=== PATIENT | female | born 1970 | race Caucasian/White ===

== ENCOUNTER 2016-10-13 10:36 | Emergency (ER) | payer OTHER ==
[~2016-10-13] VITALS: Ht 162.6 cm; Wt 78.0 kg
[2016-10-13 10:41] VITALS: Ht 162.6 cm; Wt 78.0 kg
[2016-10-13] MEDS ORDERED: morphine 4 MG/ML VIAL IV STA ×2 (11:04→15:32)
[2016-10-13] MEDS ORDERED: ONDANSETRON 4 MG INJ IV STA ×2 (11:04→15:32)
[2016-10-13] MEDS ORDERED: SOD CHLORIDE 0.9% 1,000 ML IV STA (11:04)
[2016-10-13 11:42] LABS: ADD SCAN DIFF NO
[2016-10-13 11:46] LABS: BASOPHILS % 0.3 % (0.0-2.0); EOSINOPHILS # 0.1 10^3/ul (0.0-0.5); EOSINOPHILS % 0.7 % (0.0-7.0); HEMATOCRIT 50.9 % (37.0-47.0); HEMOGLOBIN 16.6 g/dl (12.0-16.0); LYMPHOCYTES # 1.3 10^3/ul (0.8-2.9); LYMPHOCYTES % 17.4 % (15.0-51.0); MEAN CORPUSCULAR HEMOGLOBIN 28.9 pg (29.0-33.0); MEAN CORPUSCULAR HGB CONC 32.6 g/dl (32.0-37.0); MEAN CORPUSCULAR VOLUME 88.5 fl (82.0-101.0); MEAN PLATELET VOLUME 10.1 fl (7.4-10.4); MONOCYTE # 0.7 10^3/ul (0.3-0.9); MONOCYTES % 9.3 % (0.0-11.0); NEUTROPHIL # 5.2 10^3/ul (1.6-7.5); NEUTROPHILS % 71.9 % (39.0-77.0); PLATELET COUNT 338 10^3/UL (140-415); RED BLOOD COUNT 5.75 10^6/ul (4.20-5.40); RED CELL DISTRIBUTION WIDTH 13.2 % (11.5-14.5); WHITE BLOOD COUNT 7.3 10^3/ul (4.8-10.8)
--- NOTE | 2016-10-13 12:04 | RADRPT ---
PROCEDURE: Right upper quadrant abdominal ultrasound. CLINICAL INDICATION: Abdominal pain TECHNIQUE: Ramos scale and color doppler ultrasound images of the right upper quadrant. COMPARISON: None FINDINGS: Pancreas: Visualized portions appear of normal echogenicity, no focal lesions. Liver: Morphology: Normal in size and contour. Echogenicity: Normal. Focal lesions: None. Main portal vein: Patent with hepatopetal flow. Biliary System: Normal appearing gallbladder wall. No gallstones seen. No intrahepatic biliary dilatation. Common bile duct measures 4.7 mm in maximal dimension. Kidneys: Right 10.3 cm in length. Right renal cortical thickness is preserved. Normal echogenicity. No hydronephrosis. No renal calculi. No focal lesions. No free fluid identified. IMPRESSION: Normal gallbladder without gallstones. Normal examination. RPTAT: AADD .Gigi Bah MD, MD Date Time Electronically viewed and signed by .Gigi Bah MD, on 10/13/2016 12:04 .B/
[2016-10-13 12:09] LABS: ALBUMIN 5.1 g/dl (3.3-4.9); ALBUMIN/GLOBULIN RATIO 1.59; BILIRUBIN,INDIRECT 0.3 mg/dl (0-1.1); BILIRUBIN,TOTAL 0.3 mg/dl (0.2-1.3); CALCIUM 10.2 mg/dl (8.4-10.2); CREATININE 0.7 mg/dl (0.44-1.00); TOTAL PROTEIN 8.3 g/dl (6.1-8.1)
--- NOTE | 2016-10-13 12:16 | ERD ---
ER Documentation Chief Complaint Date/Time DATE: 10/13/16 TIME: 12:16 Chief Complaint ap with nausea and diarrhea HPI This is a 46-year-old female with history of gastritis presenting to the emergency department complaining of severe constant periumbilical abdominal pain and epigastric abdominal pain for the past day. Patient states that she is nauseous and had a few episodes of nonbloody diarrhea yesterday. Patient denies any vomiting, fevers. She states the pain has worsened after she ate a meal. She denies any dysuria. Patient states she has had the epigastric pain on and off for past year ROS All systems reviewed and are negative except as per history of present illness. Medications Home Meds Active Scripts Hydrocodone/Acetaminophen ([place] 5-325 Tablet) 1 Each Tablet, 1 EACH PO Q6, #20 TAB Prov:GODWIN BEASLEY PA-C 10/13/16 Trimethobenzamide Hcl* (Tigan*) 300 Mg Capsule, 300 MG PO TID Y for NAUSEA, #10 CAP Prov:GODWIN BEASLEY PA-C 10/13/16 Omeprazole* (Omeprazole*) 20 Mg Capsule.dr, 20 MG PO DAILY, #20 Prov:GODWIN BEASLEY PA-C 10/13/16 PMhx/Soc Medical and Surgical Hx: pt denies Medical Hx, pt denies Surgical Hx Hx Alcohol Use: No Hx Substance Use: No Hx Tobacco Use: No Smoking Status: Never smoker Physical Exam Vitals Vital Signs Date Time Temp Pulse Resp B/P Pulse Ox O2 Delivery O2 Flow Rate FiO2 10/13/16 10:41 98.1 77 18 110/59 99 Physical Exam GENERAL: well-developed/well-nourished, in no apparent distress, non-toxic appearing HENT: NC/AT, moist mucous membranes EYES: Conjunctiva normal NECK: Supple, no lymphadenopathy PULM: CTA bilaterally, no rales, rhonchi, or wheezing heard CV: Normal S1S2, RRR, good capillary refill GI: Soft, non-distended, tender to palpation epigastric and periumbilical region Normal bowel sounds, no masses or organomegaly felt on exam No gross peritonitis, no bruits Negative Rovsing, negative Earl, negative McBurney's point, Negative CVAT BACK: No masses EXT: No clubbing, cyanosis, or edema NEURO: Alert and Orientated SKIN: Intact, normal turgor PSYCH: Normal mood and mentation Result Diagram: 10/13/16 1120 10/13/16 1120 Results 24 hrs Laboratory Tests Test 10/13/16 11:20 10/13/16 14:10 White Blood Count 7.310^3/ul Red Blood Count 5.7510^6/ul Hemoglobin 16.6g/dl Hematocrit 50.9% Mean Corpuscular Volume 88.5fl Mean Corpuscular Hemoglobin 28.9pg Mean Corpuscular Hemoglobin Concent 32.6g/dl Red Cell Distribution Width 13.2% Platelet Count 79892^3/UL Mean Platelet Volume 10.1fl Neutrophils % 71.9% Lymphocytes % 17.4% Monocytes % 9.3% Eosinophils % 0.7% Basophils % 0.3% Nucleated Red Blood Cells % 0.0/100WBC Neutrophils # 5.210^3/ul Lymphocytes # 1.310^3/ul Monocytes # 0.710^3/ul Eosinophils # 0.110^3/ul Basophils # 0.010^3/ul Nucleated Red Blood Cells # 0.010^3/ul Sodium Level 142mmol/L Potassium Level 5.0mmol/L Chloride Level 107mmol/L Carbon Dioxide Level 26mmol/L Anion Gap 14 Blood Urea Nitrogen 8mg/dl Creatinine 0.70mg/dl Glucose Level 92mg/dl Calcium Level 10.2mg/dl Total Bilirubin 0.3mg/dl Direct Bilirubin 0.00mg/dl Indirect Bilirubin 0.3mg/dl Aspartate Amino Transf (AST/SGOT) 44IU/L Alanine Aminotransferase (ALT/SGPT) 52IU/L Alkaline Phosphatase 58IU/L Total Protein 8.3g/dl Albumin 5.1g/dl Globulin 3.20g/dl Albumin/Globulin Ratio 1.59 Lipase 116U/L Urine Color YELLOW Urine Clarity CLEAR Urine pH 5.5 Urine Specific [place] >=1.030 Urine Ketones NEGATIVE Urine Nitrite NEGATIVE Urine Bilirubin NEGATIVE Urine Urobilinogen 0.2 E.U./dL Urine Leukocyte Esterase NEGATIVE Urine Microscopic RBC 0-2/HPF Urine Microscopic WBC 0-2/HPF Urine Epithelial Cells FEW Urine Bacteria MODERATE Urine Hemoglobin 1+ Urine Glucose NEGATIVE% Urine Total Protein NEGATIVE Current Medications Medications (Trade) Dose Ordered Sig/Hang Route PRN Reason Start Time Stop Time Status Last Admin Dose Admin Sodium Chloride (NS) 1,000 ml @ 1,000 mls/hr Q1H STAT IV 10/13/16 11:04 10/13/16 12:04 DC 10/13/16 11:18 Morphine Sulfate (morphine) 4 mg ONCE STAT IV 10/13/16 11:04 10/13/16 11:06 DC 10/13/16 11:17 Ondansetron HCl (Zofran Inj) 4 mg ONCE STAT IV 10/13/16 11:04 10/13/16 11:06 DC 10/13/16 11:17 Morphine Sulfate (morphine) 4 mg ONCE STAT IV 10/13/16 15:32 10/13/16 15:33 DC 10/13/16 15:46 Ondansetron HCl (Zofran Inj) 4 mg ONCE STAT IV 10/13/16 15:32 10/13/16 15:33 DC 10/13/16 15:46 Miscellaneous Medication (Gi Cocktail (2)) 40 ml ONCE STAT PO 10/13/16 15:34 10/13/16 15:35 DC 10/13/16 15:46 Procedures/MDM This is a 46-year-old female presenting to the emergency department with a complaint of periumbilical abdominal pain, epigastric pain, nausea, and diarrhea since yesterday. Differentials include but not limited to viral gastroenteritis, gastritis, early appendicitis, PUD, diverticulosis and other acute abdominal conditions. IV access established, patient was given 1 L fluids , morphine and Zofran. Patient had some improvement in pain and nausea. Lab work was drawn. CBC did not show any evidence of leukocytosis. CMP did not show any evidence of renal, liver, or electrolyte abnormalities. Lipase was normal. UA did not show any evidence of hemoglobin or urinary tract infection. CT abd and pelvis without contrast was done and radiologist stated - questionable thickening of the distal tip of the appendix, likely related to redundant segments of the distal appendix. There is no definitive evidence of acute appendicitis, however tip appendicitis can be subtle, and follow-up is recommended as clinically indicated. I have consulted my supervising physician who has also evaluated patient and consulted GI surgeon on this case. At this time, top differential is viral gastroenteritis. She was non-tender to palpate in right lower quadrant , afebrile, no leukocytosis, she appears well. We have given patient a lengthy discussion on strict precautions to return to the ER for any worsening sinus symptoms. Patient understands and agrees with this plan. She stable for discharge for home. Prescription [place], Tigan was provided. CT abd and pelvis without contrast: 1. Questionable thickening of the distal tip of the appendix, likely related to redundant segments of the distal appendix. There is no definitive evidence of acute appendicitis, however tip appendicitis can be subtle, and follow-up is recommended as clinically indicated. 2. Atherosclerotic vascular disease, recommend clinical correlation is 46-year- old female. 3. Diverticulosis without evidence of diverticulitis. 4. Tiny periumbilical hernia containing only fat. 5. Small pelvic free fluid, which can be physiologic in a young female. Gallbladder US: Normal gallbladder without gallstones. Normal examination. Departure Diagnosis: Primary Impression: Abdominal pain Additional Impression: Nausea, vomiting, and diarrhea Condition: Stable GODWIN BEASLEY PA-C Oct 13, 2016 12:16
[2016-10-13 14:29] LABS: ADD UMIC YES; UR BILIRUBIN (Dip) NEGATIVE (NEGATIVE); UR BLOOD (Dip) 1+ (NEGATIVE); UR CLARITY CLEAR (CLEAR); UR COLOR YELLOW (YELLOW); UR GLUCOSE (Dip) NEGATIVE (NEGATIVE); UR KETONES (Dip) NEGATIVE (NEGATIVE); UR LEUKOCYTE ESTERASE (Dip) NEGATIVE (NEGATIVE); UR NITRITE (Dip) NEGATIVE (NEGATIVE); UR TOTAL PROTEIN (Dip) NEGATIVE (NEGATIVE); UR UROBILINOGEN (Dip) 0.2 E.U./dL (0.1-1.0)
[2016-10-13 14:38] LABS: UR BACTERIA MODERATE
[2016-10-13 14:39] LABS: URINE RBCS 0-2 /HPF (0)
--- NOTE | 2016-10-13 14:44 | RADRPT ---
PROCEDURE: CT Abdomen and Pelvis without contrast. CLINICAL INDICATION: Abdominal pain. Nausea vomiting and diarrhea. TECHNIQUE: CT scan of the abdomen and pelvis without contrast was performed on a multi-slice CT [facility] without intravenous contrast. Coronal and sagittal reformatted images were obtained from the axial source images. Images were reviewed on a high-resolution PACS workstation. One or more of the following does reduction techniques were used: Automated exposure control; adjustment of the mA an d/or kV according to patient size; use of the aorta of reconstruction technique. The total exam CTD I equals 10.3 mGy and the total exam DLP equals 538.7 mGy-cm. COMPARISON: None available. FINDINGS: The lung bases are clear. Heart size is normal, and there is no evidence of pericardial thickening or effusion. The liver, spleen, and pancreas are normal given limitations of a noncontrast CT examination. The g allbladder is normal. The adrenal glands are normal. The kidneys without renal calculus or hydronephrosis. The aorta is of normal caliber. Atherosclerotic calcifications are present There is no retroperiton eal lymph node enlargment. There is no evidence of large or small bowel obstruction there is scattered colonic diverticuli incl uding a cecal diverticulum. There is no CT evidence of diverticulitis. The majority of the appendi x appears within normal limits. There is questionable thickening of the tip of the appendix, which may be related to coiled redundant segments of the distal appendix. There is questionable trace adj acent fluid. There is no definitive evidence of acute appendicitis. No free fluid or fluid collect ions are identified. There is a tiny periumbilical hernia containing only fat. The uterus is present. No enlarged pelvic sidewall lymph nodes are seen. The bladder is decompresse d and collapsed. There is a small amount of pelvic free fluid. The inguinal regions are unremarkab le. The bones are intact. IMPRESSION: 1. Questionable thickening of the distal tip of the appendix, likely related to redundant segments of the distal appendix. There is no definitive evidence of acute appendicitis, however tip appendic itis can be subtle, and follow-up is recommended as clinically indicated. 2. Atherosclerotic vascular disease, recommend clinical correlation is 46-year-old female. 3. Diverticulosis without evidence of diverticulitis. 4. Tiny periumbilical hernia containing only fat. 5. Small pelvic free fluid, which can be physiologic in a young female. RPTAT: KK .Jameson Ugarte MD, MD Date Time Electronically viewed and signed by .Jameson Ugarte MD, MD on 10/13/2016 14:44 .B/
[2016-10-13] MEDS ORDERED: OMEP20CA16 PO (15:34)
[2016-10-13] MEDS ORDERED: LIDOCAINE/MYLANTA 40 ML BTL PO STA (15:34)
[2016-10-13] MEDS ORDERED: HYDR-906 PO (15:38)
[2016-10-13] MEDS ORDERED: TRIM300C16 PO (15:38)
== END 2016-10-13 16:15 | disposition home or self-care (01) ==
LOC: FTE 10:36
DX: R10.33 Periumbilical pain (principal); R11.2 Nausea with vomiting, unspecified; R19.7 Diarrhea, unspecified
CPT/HCPCS: 74176; 76705; 80053; 81001; 83690; 85025; J2270; J2405; J7030; Z7610; 36415; 96374; 96375; 96376

== ENCOUNTER 2017-12-21 10:05 | Emergency (ER) | END 2017-12-21 14:52 | disposition home or self-care (01) ==